=== PATIENT | female | born 2000 | race African-American/Black ===

== ENCOUNTER 2019-08-12 07:44 | Inpatient (IN) | payer BC, OTHER ==
[~2019-08-12] VITALS: Ht 170.2 cm; Wt 83.9 kg
--- NOTE | 2019-08-12 07:57 | NUR ---
ED Nurse Note: Pt walked in ED from home c/o cough x1 week, worsening last night and today with wheezing noted. Pt aox4, on room air patient is saturating 97%. Pt denies hx of asthma. Placed in hospital gown, cont. secured entrance monitor, and cont. pulse ox.
--- NOTE | 2019-08-12 07:57 | NUR ---
ED Nurse Note: ERMD at bedside
[2019-08-12] MEDS ORDERED: Azithromycin 250mg tab PO ONE (08:00)
[2019-08-12] MEDS ORDERED: cefTRIAXone 1 GM in NS 55 ML IVPB ONE (08:00)
[2019-08-12] MEDS ORDERED: Albuterol ud Inhalation HHN ONE ×2 (08:00→09:00)
--- NOTE | 2019-08-12 08:09 | Emergency Room Report ---
History of Present Illness General Chief Complaint: Dyspnea/Respdistress Source: Patient Present Illness HPI This patient states that about 4 days ago she developed "cold like symptoms." She states she initially did have a sore throat and over time has become more congested and has developed a cough and difficulty breathing. She states that she felt like she could not breathe especially when she was laying flat. This caused her not to be able to sleep. She states she has had thick sputum production. She denies fever or chills. She denies nausea or vomiting. She denies chest pain or abdominal pain. She states that she does smoke tobacco and marijuana both regularly. She states that the last time she vapes was 2 months ago. She does use alcohol socially. She denies other drug use. She denies any history of asthma or other history of needing to use an inhaler or any type of chronic lung conditions. She has no other complaints. Allergies: Coded Allergies: No Known Allergies (Unverified , 08/12/19) Patient History Past Medical History: none Social History: Reports: smoking, alcohol use, drug use - THC Now: No Reviewed Nursing Documentation: PMH: Agreed; PSxH: Agreed Nursing Documentation-PMH Past Medical History: No Stated History Review of Systems All Other Systems: negative except mentioned in HPI Physical Exam Vital Signs Date Time Temp Pulse Resp B/P (MAP) Pulse Ox O2 Delivery O2 Flow Rate FiO2 08/12/19 07:47 98.4 101 22 118/74 (89) 93 Room Air Sp02 EP Interpretation: reviewed, normal General Appearance: no apparent distress, alert, GCS 15, non-toxic Head: normocephalic, atraumatic Eyes: bilateral eye normal inspection, bilateral eye PERRL ENT: hearing grossly normal, normal pharynx, no angioedema, normal voice Neck: full range of motion, supple/symm/no masses Respiratory: chest non-tender, no respiratory distress, no retraction, no accessory muscle use, rhonchi - Rhonchi Bilateral Lung castro, speaking full sentences, wheezing - Slight wheeze both inspiration and expiration., expiration , inspiration Cardiovascular #1: regular rate, rhythm, no edema Gastrointestinal: normal bowel sounds, non tender, soft, non-distended, no guarding, no rebound Rectal: deferred Musculoskeletal: back normal, gait/station normal, normal range of motion, non- tender Neurologic: alert, oriented x3, responsive, motor strength/tone normal, sensory intact, speech normal Psychiatric: judgement/insight normal, memory normal, mood/affect normal, no suicidal/homicidal ideation Skin: no rash, normal color Medical Decision Making Diagnostic Impression: Primary Impression: Bronchospasm Additional Impression: Dyspnea Laboratory Tests Test 08/12/19 08:04 08/12/19 08:55 White Blood Count 12.7 K/UL (4.8-10.8) H Red Blood Count 5.21 M/UL (4.20-5.40) Hemoglobin 13.5 G/DL (12.0-16.0) Hematocrit 41.7 % (37.0-47.0) Mean Corpuscular Volume 80 FL (80-99) Mean Corpuscular Hemoglobin 26.0 PG (27.0-31.0) L Mean Corpuscular Hemoglobin Concent 32.4 G/DL (32.0-36.0) Red Cell Distribution Width 14.1 % (11.6-14.8) Platelet Count 260 K/UL (150-450) Mean Platelet Volume 8.6 FL (6.5-10.1) Neutrophils (%) (Auto) 67.2 % (45.0-75.0) Lymphocytes (%) (Auto) 18.2 % (20.0-45.0) L Monocytes (%) (Auto) 9.1 % (1.0-10.0) Eosinophils (%) (Auto) 4.2 % (0.0-3.0) H Basophils (%) (Auto) 1.2 % (0.0-2.0) Sodium Level 142 MMOL/L (136-145) Potassium Level 3.6 MMOL/L (3.5-5.1) Chloride Level 106 MMOL/L (98-107) Carbon Dioxide Level 26 MMOL/L (21-32) Anion Gap 10 mmol/L (5-15) Blood Urea Nitrogen 10 mg/dL (7-18) Creatinine 0.8 MG/DL (0.55-1.30) Estimate Glomerular Filtration Rate > 60 mL/min (>60) Glucose Level 101 MG/DL (74-106) Calcium Level 9.0 MG/DL (8.5-10.1) Total Bilirubin 0.3 MG/DL (0.2-1.0) Aspartate Amino Transferase (AST) 17 U/L (15-37) Alanine Aminotransferase (ALT) 21 U/L (12-78) Alkaline Phosphatase 93 U/L (46-116) Total Protein 7.7 G/DL (6.4-8.2) Albumin 3.9 G/DL (3.4-5.0) Globulin 3.8 g/dL Albumin/Globulin Ratio 1.0 (1.0-2.7) Urine Color Pale yellow Urine Appearance Clear Urine pH 7 (4.5-8.0) Urine Specific [place] 1.005 (1.005-1.035) Urine Protein Negative (NEGATIVE) Urine Glucose (UA) Negative (NEGATIVE) Urine Ketones Negative (NEGATIVE) Urine Blood 5+ (NEGATIVE) H Urine Nitrite Negative (NEGATIVE) Urine Bilirubin Negative (NEGATIVE) Urine Urobilinogen Normal MG/DL (0.0-1.0) Urine Leukocyte Esterase Negative (NEGATIVE) Urine RBC 40-60 /HPF (0 - 2) H Urine WBC 0 /HPF (0 - 2) Urine Squamous Epithelial Cells Occasional /LPF Urine Bacteria Occasional /HPF (NONE) Urine HCG, Qualitative Negative (NEGATIVE) Microbiology Date/Time Source Procedure Growth Status 08/12/19 08:50 Nasal Nares - Final Complete 08/12/19 08:50 Nasal Nares - Final Complete Chest X-Ray Diagnostic Results Chest X-Ray Diagnostic Results : Chest X-Ray Ordered: Yes # of Views/Limited/Complete: 1 View Indication: Shortness of Breath EP Interpretation: Yes Interpretation: no consolidation, no effusion, no pneumothorax, no acute cardiopulmonary disease Impression: No acute disease Electronically Signed by: Deepika Ny DO Last Vital Signs Date Time Temp Pulse Resp B/P (MAP) Pulse Ox O2 Delivery O2 Flow Rate FiO2 08/12/19 07:47 98.4 101 22 118/74 (89) 93 Room Air Scripts No Active Prescriptions or Reported Meds Deepika Ny DO Aug 12, 2019 08:09
--- NOTE | 2019-08-12 08:10 | NUR ---
ED Nurse Note: Blood collected and sent down to lab
--- NOTE | 2019-08-12 08:13 | NUR ---
ED Nurse Note: xray at bedside.
--- NOTE | 2019-08-12 08:21 | NUR ---
ED Nurse Note: RT at bedside for breathing treatment.
[2019-08-12 08:22] VITALS: BP 130/81
[2019-08-12 08:47] LABS: BASOPHILS % (AUTO) 1.2 % (0.0-2.0); EOSINOPHILS % (AUTO) 4.2 % (0.0-3.0); HEMATOCRIT 41.7 % (37.0-47.0); HEMOGLOBIN 13.5 G/DL (12.0-16.0); LYMPHOCYTES % (AUTO) 18.2 % (20.0-45.0); MEAN CORPUSCULAR VOLUME 80 FL (80-99); MONOCYTES % (AUTO) 9.1 % (1.0-10.0); NEUTROPHILS % (AUTO) 67.2 % (45.0-75.0); PLATELET COUNT 260 K/UL (150-450); RED BLOOD COUNT 5.21 M/UL (4.20-5.40); RED CELL DISTRIBUTION WIDTH 14.1 % (11.6-14.8); WHITE BLOOD COUNT 12.7 K/UL (4.8-10.8)
--- NOTE | 2019-08-12 08:50 | NUR ---
ED Nurse Note: Influenza swab taken and sent down to lab.
[2019-08-12 08:52] LABS: ANION GAP 10 mmol/L (5-15); BLOOD UREA NITROGEN 10 mg/dL (7-18); CARBON DIOXIDE 26 MMOL/L (21-32); CHLORIDE 106 MMOL/L (98-107); CREATININE 0.8 MG/DL (0.55-1.30); POTASSIUM 3.6 MMOL/L (3.5-5.1); SODIUM 142 MMOL/L (136-145)
--- NOTE | 2019-08-12 08:56 | NUR ---
ED Nurse Note: RT at bedside for second dose of breathing treatment per ERMD order.
[2019-08-12 08:58] LABS: ALANINE AMINOTRANSFERASE 21 U/L (12-78); ALBUMIN 3.9 G/DL (3.4-5.0); ALKALINE PHOSPHATASE 93 U/L (46-116); ASPARTATE AMINO TRANSFERASE 17 U/L (15-37); BILIRUBIN,TOTAL 0.3 MG/DL (0.2-1.0)
--- NOTE | 2019-08-12 09:00 | NUR ---
ED Nurse Note: urine sample provided by patient; sent to lab.
[2019-08-12 09:12] LABS: APPEARANCE,URINE CLEAR; BILIRUBIN, URINE NEGATIVE (NEGATIVE); COLOR,URINE PALE YELLOW; GLUCOSE, URINE (UA) NEGATIVE (NEGATIVE); KETONES,URINE NEGATIVE (NEGATIVE); LEUKOCYTE ESTERASE ,URINE NEGATIVE (NEGATIVE); NITRITE,URINE NEGATIVE (NEGATIVE); PH,URINE 7 (4.5-8.0); PROTEIN,URINE NEGATIVE (NEGATIVE); UROBILINOGEN,URINE NORMAL MG/DL (0.0-1.0)
--- NOTE | 2019-08-12 09:18 | NUR ---
ED Nurse Note: Patient's mother present at bedside.
[2019-08-12 09:21] VITALS: BP 124/68
--- NOTE | 2019-08-12 09:26 | Diagnostic Imaging Report ---
Indication: Dyspnea Comparison: None A single view chest radiograph was obtained. Findings: Cardiomediastinal appearance is within normal limits for age. The lungs are clear. Pulmonary vascularity is appropriate. The diaphragmatic contour is smooth and costophrenic angles are sharp. No pleural effusions are identified. The bones are unremarkable. Impression: No acute findings
--- NOTE | 2019-08-12 10:50 | History and Physical ---
History of Present Illness General Date patient seen: Aug 12, 2019 Reason for Hospitalization: Dyspnea/Respdistress Present Illness HPI This is a 19-year-old -British female who is accompanied by her mom presenting to the ED with few days of having developed cold-like symptoms. Patient has no past medical problems, she is a student in [employer] and works at [employer]. Per patient she has developed a cough, dry, mostly at night and early in the morning. Patient denies any history of asthma. She has recently started smoking marijuana oil via the vape. Denies smoking cigarettes. Patient denies having any sick contacts. Tonight before admission patient's cough got really bad, mom made her hot tea and gave her some allergy medication and she fell asleep. Patient says she woke up multiple times with shortness of breath during her sleep. When she woke up in the morning she felt extremely weak and had difficulty breathing, hence the mom brought her into the ED. Recently her cough became productive of thick sputum. She denies having fevers or chills. She denies any chest pain, nausea, vomiting, abdominal pain, lower extremity edema. Of note her mom gave her some albuterol inhaler and that helped a little. Patient denies any other complaints. In the ER she received steroids and breathing treatments without improvement and was admitted for further treatment. In the ER her vitals: 124/68, pulse 103, temperature 98.4 F, O2 sat 100% on 2 L via nasal cannula Labs remarkable for WBC 12.7 without a left shift, however Eosinophils of 4.2%, potassium 3.6, chloride 106, CO2 26, BUN 10, creatinine 0.8, glucose 101, calcium 9, LFTs unremarkable, chest x-ray no acute findings, influenza a and B both negative Past medical history: As above Past surgical history: None Family history: Mom with asthma Social history: Student at [employer], works at [employer], denies smoking cigarettes, vapes marijuana, denies alcohol or other illicit drug use Allergies: Coded Allergies: No Known Allergies (Unverified , 08/12/19) Medication History No Active Prescriptions or Reported Meds Patient History Healthcare decision maker Resuscitation status Advanced Directive on File Review of Systems Constitutional: Reports: no symptoms, see HPI, chills, sweats, fever, malaise, other Eye: Denies: no symptoms, see HPI, eye pain, blurred vision, tearing, double vision, nose pain, nose congestion, acuity changes, discharge, other ENT: Denies: no symptoms, see HPI, ear pain, ear discharge, nose pain, nose congestion, throat pain, throat swelling, mouth pain, hearing loss, nasal discharge, other Respiratory: Reports: no symptoms, see HPI, orthopnea, shortness of breath, stridor, GIBSON, other Cardiovascular: Denies: no symptoms, see HPI, chest pain, edema, palpitations, syncope, PND, other Gastrointestinal: Denies: no symptoms, see HPI, abdominal pain, constipation, diarrhea, nausea, vomiting, melena, hematemesis, other Genitourinary: Denies: no symptoms, see HPI, discharge, dysuria, frequency, hematuria, pain, retention, incontinence, urgency, vag bleed/dc, other Musculoskeletal: Denies: no symptoms, see HPI, back pain, gout, joint pain, joint swelling, muscle pain, muscle stiffness, other Skin: Denies: no symptoms, see HPI, rash, change in color, change in hair/nails , dryness, lesions, other Psychiatric: Denies: no symptoms, see HPI, prior hx, anxiety, depressed feelings, emotional problems, SI, HI, hallucinations, other Neurological: Denies: no symptoms, see HPI, headache, numbness, paresthesia, seizure, tingling, tremors, focal weakness, syncope, dizziness, other Endocrine: Denies: no symptoms, see HPI, excessive sweating, flushing, intolerance to temperature, increased thirst, increased urine, unexplained weight loss, other Hematologic/Lymphatic: Denies: no symptoms, see HPI, anemia, blood clots, easy bleeding, easy bruising, swollen glands, diathesis, other Physical Exam Physical Exam Narrative General Appearance: no apparent distress, alert, non-toxic, no respiratory distress Head: normocephalic, atraumatic Eyes: bilateral eye normal inspection, bilateral eye PERRL ENT: hearing grossly normal, normal pharynx, no angioedema, normal voice Neck: full range of motion, supple/symm/no masses Respiratory: Lungs with rhonchi throughout, inspiratory and expiratory wheezing , speaks full sentences Cardiovascular: S1S2, tachycardia, no m/r/g, no edema Gastrointestinal: normal bowel sounds, non tender, soft, non-distended, no guarding, no rebound Musculoskeletal: gait/station normal, normal range of motion, non-tender Neurologic: alert, oriented x3, responsive, motor strength/tone normal, sensory intact, speech normal Psychiatric: judgement/insight normal, memory normal, mood/affect normal, no suicidal/homicidal ideation Skin: no rash, normal color Last 24 Hour Vital Signs Date Time Temp Pulse Resp B/P (MAP) Pulse Ox O2 Delivery O2 Flow Rate FiO2 08/12/19 09:59 103 18 100 Room Air 21 08/12/19 09:21 98.4 106 20 124/68 100 Room Air 08/12/19 08:59 100 18 98 Room Air 21 08/12/19 08:40 87 18 100 Room Air 08/12/19 08:22 78 22 Room Air 21 08/12/19 08:22 98.4 74 22 130/81 97 Room Air 08/12/19 08:21 78 18 97 Room Air 08/12/19 07:47 98.4 101 22 118/74 (89) 93 Room Air Laboratory Tests Test 08/12/19 08:04 08/12/19 08:55 White Blood Count 12.7 K/UL (4.8-10.8) H Red Blood Count 5.21 M/UL (4.20-5.40) Hemoglobin 13.5 G/DL (12.0-16.0) Hematocrit 41.7 % (37.0-47.0) Mean Corpuscular Volume 80 FL (80-99) Mean Corpuscular Hemoglobin 26.0 PG (27.0-31.0) L Mean Corpuscular Hemoglobin Concent 32.4 G/DL (32.0-36.0) Red Cell Distribution Width 14.1 % (11.6-14.8) Platelet Count 260 K/UL (150-450) Mean Platelet Volume 8.6 FL (6.5-10.1) Neutrophils (%) (Auto) 67.2 % (45.0-75.0) Lymphocytes (%) (Auto) 18.2 % (20.0-45.0) L Monocytes (%) (Auto) 9.1 % (1.0-10.0) Eosinophils (%) (Auto) 4.2 % (0.0-3.0) H Basophils (%) (Auto) 1.2 % (0.0-2.0) Sodium Level 142 MMOL/L (136-145) Potassium Level 3.6 MMOL/L (3.5-5.1) Chloride Level 106 MMOL/L (98-107) Carbon Dioxide Level 26 MMOL/L (21-32) Anion Gap 10 mmol/L (5-15) Blood Urea Nitrogen 10 mg/dL (7-18) Creatinine 0.8 MG/DL (0.55-1.30) Estimat Glomerular Filtration Rate > 60 mL/min (>60) Glucose Level 101 MG/DL (74-106) Calcium Level 9.0 MG/DL (8.5-10.1) Total Bilirubin 0.3 MG/DL (0.2-1.0) Aspartate Amino Transf (AST/SGOT) 17 U/L (15-37) Alanine Aminotransferase (ALT/SGPT) 21 U/L (12-78) Alkaline Phosphatase 93 U/L (46-116) Total Protein 7.7 G/DL (6.4-8.2) Albumin 3.9 G/DL (3.4-5.0) Globulin 3.8 g/dL Albumin/Globulin Ratio 1.0 (1.0-2.7) Urine Color Pale yellow Urine Appearance Clear Urine pH 7 (4.5-8.0) Urine Specific [place] 1.005 (1.005-1.035) Urine Protein Negative (NEGATIVE) Urine Glucose (UA) Negative (NEGATIVE) Urine Ketones Negative (NEGATIVE) Urine Blood 5+ (NEGATIVE) H Urine Nitrite Negative (NEGATIVE) Urine Bilirubin Negative (NEGATIVE) Urine Urobilinogen Normal MG/DL (0.0-1.0) Urine Leukocyte Esterase Negative (NEGATIVE) Urine RBC 40-60 /HPF (0 - 2) H Urine WBC 0 /HPF (0 - 2) Urine Squamous Epithelial Cells Occasional /LPF Urine Bacteria Occasional /HPF (NONE) Urine HCG, Qualitative Negative (NEGATIVE) Microbiology Date/Time Source Procedure Growth Status 08/12/19 08:50 Nasal Nares - Final Complete 08/12/19 08:50 Nasal Nares - Final Complete Height (Feet): 5 Height (Inches): 7.00 Weight (Pounds): 185 Assessment/Plan Problem List: (1) CAP (community acquired pneumonia) ICD Codes: J18.9 - Pneumonia, unspecified organism SNOMED: 311973213 (2) Acute lung injury associated with vaping ICD Codes: T59.891A - Toxic effect of other specified gases, fumes and vapors, accidental (unintentional), initial encounter; J68.9 - Unspecified respiratory condition due to chemicals, gases, fumes and vapors SNOMED: 290941694, 670472493 (3) Dyspnea ICD Codes: R06.00 - Dyspnea, unspecified SNOMED: 210264961 (4) Bronchospasm ICD Codes: J98.01 - Acute bronchospasm SNOMED: 9635976 Status: stable Assessment/Plan: This is a 19 year old female who presents with dyspnea and cough, she has no history of reactive airway disease however uses vaping products including THC oil. Influenza A and B negative #Dyspnea/cough #?EVALI (E-cigarette, or vaping, product use associated lung injury) #?CAP #Asthma Urine antigen for legionella and streptococcus pneumoniae blood cultures sputum cultures Viral respiratory panel Empiric antibiotics with ceftriaxone and azithromycin IV methylprenisolone, taper per clinical response O2 as needed to keep sats > 95%, noninvasive ventilation if develops worsening respiratory distress Supportive care Chest CT If respiratory status worsens, low threshold for ICU Duone Pulmonary consult with Dr. Cochran Patient counselled on quitting vaping and smoking marijuana. She understands. Mom at bedside and appreciative vte ppx Heparin subq GI ppx: PPI Code status: full code I spent 70 minutes on this encounter. >50% spent on counseling and care coordination. Case discussed with ED physician, RN, patient and mom. Sergio Dumont M.D. Aug 12, 2019 10:50
--- NOTE | 2019-08-12 11:00 | NUR ---
ED Nurse Note: Report given to CRISTI Lemos via telephone.
--- NOTE | 2019-08-12 11:08 | NUR ---
TRANSFER TO FLOOR: Patient transferred to [facility] room 415-1 as ordered, per Dr Brown. Report given to CRISTI Lemos. Belongings list signed. Transferred via gurney in stable condition. Mother at bedside informed of transfer.
--- NOTE | 2019-08-12 11:15 | NUR ---
NURSE NOTES: Patient received to the floor, ambulatory, alert and orientedx4. Coughing. Belongings confirmed with the patient at bedside. Mother accompanied the patient during transfer.
[2019-08-12 12:28] VITALS: BP 129/78
[2019-08-12] MEDS: Solu-MEDROL 40mg Inj IVP SCH ×2 (14:21→21:30)
[2019-08-12 16:00] VITALS: BP 131/76
--- NOTE | 2019-08-12 19:28 | NUR ---
HAND-OFF: Report given to Kayce COLIN.
--- NOTE | 2019-08-12 19:41 | NUR ---
NURSE NOTES: Received report from Aminta COLIN. Patient A&Ox4. Pt awake, alert and OX4. Breathing on room air, no signs of acute distress noted. IV intact, patent and asymptomatic. Bed in lowest position with call light in reach. Will continue to monitor the pt.
[2019-08-12 20:00] VITALS: BP 127/74
[2019-08-12] MEDS: Albuterol/Ipratropium 3ml neb HHN PRN (20:40)
[2019-08-12] MEDS: Heparin 5000 units/ml inj SUBQ SCH (21:31)
[2019-08-13] VITALS: BP 128/73
--- NOTE | 2019-08-13 00:59 | NUR ---
NURSE NOTES: Urine and sputum specimen collected and taken to the lab as ordered on 08/12/19 @ 9912
[2019-08-13 04:00] VITALS: BP 125/71
[2019-08-13] MEDS: Solu-MEDROL 40mg Inj IVP SCH ×3 (05:04→21:17)
--- NOTE | 2019-08-13 07:15 | NUR ---
HAND-OFF: Report given to CRISTI Lemos.
[2019-08-13 07:23] LABS: ANION GAP 15 mmol/L (5-15); BASOPHILS % (AUTO) 0.4 % (0.0-2.0); BLOOD UREA NITROGEN 9 mg/dL (7-18); CALCIUM 9.5 MG/DL (8.5-10.1); CARBON DIOXIDE 20 MMOL/L (21-32); CHLORIDE 109 MMOL/L (98-107); CREATININE 0.7 MG/DL (0.55-1.30); EOSINOPHILS % (AUTO) 0.1 % (0.0-3.0); HEMATOCRIT 41.3 % (37.0-47.0); HEMOGLOBIN 13.8 G/DL (12.0-16.0); LYMPHOCYTES % (AUTO) 11.8 % (20.0-45.0); MEAN CORPUSCULAR VOLUME 78 FL (80-99); MONOCYTES % (AUTO) 3.5 % (1.0-10.0); NEUTROPHILS % (AUTO) 84.3 % (45.0-75.0); PLATELET COUNT 284 K/UL (150-450); POTASSIUM 4.1 MMOL/L (3.5-5.1); RED BLOOD COUNT 5.27 M/UL (4.20-5.40); SODIUM 144 MMOL/L (136-145); WHITE BLOOD COUNT 13.4 K/UL (4.8-10.8)
--- NOTE | 2019-08-13 07:35 | NUR ---
NURSE NOTES: Patient received sleeping in bed, arousable by name. Alert and oriented, denies SOB or pain. Breathing unlabored on room air. No coughing observed, Patient reports she is feeling better. Call light placed within reach. Will continue to monitor.
[2019-08-13 08:00] VITALS: BP 123/56
[2019-08-13] MEDS: cefTRIAXone 1 GM in D5W 55 ML IV SCH (08:59)
[2019-08-13] MEDS: Heparin 5000 units/ml inj SUBQ SCH ×2 (09:00→21:17)
[2019-08-13] MEDS: Albuterol/Ipratropium 3ml neb HHN PRN ×2 (09:38→19:41)
[2019-08-13] MEDS: Azithromycin 500 MG in D5W 275 ML IV SCH (09:48)
[2019-08-13 12:00] VITALS: BP 121/59
--- NOTE | 2019-08-13 15:23 | Cardiology Report ---
APPROVED REPORT EKG Measurement Heart [id number] Sinus rhythm with marked sinus arrhythmia Otherwise normal ECG
--- NOTE | 2019-08-13 15:44 | Diagnostic Imaging Report ---
EXAM: CT Chest Without Intravenous Contrast CLINICAL HISTORY: SOB TECHNIQUE: Axial computed tomography images of the chest without intravenous contrast. CTDI is 18.5 mGy and DLP is 805.1 mGy-cm. One or more of the following dose reduction techniques were used: automated exposure control, adjustment of the mA and or kV according to patient size, use of iterative reconstruction technique. COMPARISON: No relevant prior studies available. FINDINGS: Lungs: Unremarkable. No mass. No consolidation. Pleural space: Unremarkable. No pneumothorax. No significant effusion. Heart: Unremarkable. No cardiomegaly. No significant pericardial effusion. Bones joints: Unremarkable. No acute fracture. No dislocation. Soft tissues: Unremarkable. Vasculature: Unremarkable. No thoracic aortic aneurysm. Lymph nodes: Unremarkable. No enlarged lymph nodes. IMPRESSION: Normal chest CT.
[2019-08-13 16:00] VITALS: BP 151/90
--- NOTE | 2019-08-13 16:12 | General Progress Note ---
Assessment/Plan Status: stable Assessment/Plan: Assessment/Plan Problem List: (1) CAP (community acquired pneumonia) ICD Codes: J18.9 - Pneumonia, unspecified organism SNOMED: 941978142 (2) Acute lung injury associated with vaping ICD Codes: T59.891A - Toxic effect of other specified gases, fumes and vapors, accidental (unintentional), initial encounter; J68.9 - Unspecified respiratory condition due to chemicals, gases, fumes and vapors SNOMED: 961001003, 838039376 (3) Dyspnea ICD Codes: R06.00 - Dyspnea, unspecified SNOMED: 826515491 (4) Bronchospasm ICD Codes: J98.01 - Acute bronchospasm SNOMED: 3693753 Status: stable Assessment/Plan: This is a 19 year old female who presents with dyspnea and cough, she has no history of reactive airway disease however uses vaping products including THC oil. Influenza A and B negative #Dyspnea/cough #?EVALI (E-cigarette, or vaping, product use associated lung injury) #?CAP #Asthma Urine antigen for legionella and streptococcus pneumoniae blood cultures sputum cultures Viral respiratory panel Empiric antibiotics with ceftriaxone and azithromycin will be continued. IV methylprenisolone, taper per clinical response - continue IV for now. O2 as needed to keep sats > 95%, noninvasive ventilation if develops worsening respiratory distress Supportive care Chest CT PENDING report. It was done today. If respiratory status worsens, low threshold for ICU Duonebs PRN Pulmonary consult with Dr. Cochran Patient counselled on quitting vaping and smoking marijuana. She understands. Mom at bedside and appreciative vte ppx Heparin subq GI ppx: H2 leroy Code status: full code I spent 70 minutes on this encounter. >50% spent on counseling and care coordination. Case discussed with ED physician, RN, patient and mom. Subjective ROS Limited/Unobtainable: Yes Respiratory: Reports: cough Gastrointestinal/Abdominal: Reports: diarrhea Allergies: Coded Allergies: No Known Allergies (Unverified , 08/12/19) All Systems: reviewed and negative except above Subjective Diarrhea noted around 10:30 am. Poor PO intake with only small sips of water noted. Cough is still present with less sputum production. Objective Last 24 Hour Vital Signs Date Time Temp Pulse Resp B/P (MAP) Pulse Ox O2 Delivery O2 Flow Rate FiO2 08/13/19 12:00 98.3 86 18 121/59 (79) 95 08/13/19 09:40 87 18 93 Room Air 21 08/13/19 09:40 92 18 99 Room Air 21 87 18 93 08/13/19 09:00 Room Air 08/13/19 08:00 98.2 82 18 123/56 (78) 93 08/13/19 04:00 98.0 75 18 125/71 (89) 97 08/13/19 00:00 97.3 78 19 128/73 (91) 98 08/12/19 21:00 Room Air 08/12/19 20:40 101 20 95 Room Air 21 08/12/19 20:40 98 20 99 Room Air 21 101 20 95 08/12/19 20:00 97.2 84 18 127/74 (91) 97 Intake and Output 08/12/19 08/13/19 18:59 06:59 Intake Total 1305 ml 735 ml Balance 1305 ml 735 ml Intake Oral 1250 ml 360 ml IV Total 55 ml 375 ml # Voids 2 2 Laboratory Tests 08/12/19 21:10: Urine Legionella Antigen [Pending] 08/13/19 06:30: White Blood Count 13.4H, Red Blood Count 5.27, Hemoglobin 13.8, Hematocrit 41.3 , Mean Corpuscular Volume 78L, Mean Corpuscular Hemoglobin 26.2L, Mean Corpuscular Hemoglobin Concent 33.4, Red Cell Distribution Width 14.0, Platelet Count 284, Mean Platelet Volume 7.8, Neutrophils (%) (Auto) 84.3H, Lymphocytes ( %) (Auto) 11.8L, Monocytes (%) (Auto) 3.5, Eosinophils (%) (Auto) 0.1, Basophils (%) (Auto) 0.4, Sodium Level 144, Potassium Level 4.1, Chloride Level 109H, Carbon Dioxide Level 20L, Anion Gap 15, Blood Urea Nitrogen 9, Creatinine 0.7, Estimat Glomerular Filtration Rate > 60, Glucose Level 119H, Calcium Level 9.5 Height (Feet): 5 Height (Inches): 7.00 Weight (Pounds): 185 General Appearance: WD/WN EENT: PERRL/EOMI Neck: non-tender, normal alignment Cardiovascular: normal peripheral pulses, normal rate Respiratory/Chest: chest wall non-tender, lungs clear Abdomen: normal bowel sounds, non tender Neurologic: enterprise architect manager II-XII grossly normal Skin: normal pigmentation Karen Camargo MD Aug 13, 2019 16:12
--- NOTE | 2019-08-13 19:00 | NUR ---
CASE MANAGEMENT: INITIAL REVIEW 19 YO F PRESENTED TO OUR ED FROM HOME CC: DYSPNEA PMHx: DRUG USE (THC) SI:BRONCHOSPASM. RESP DISTRESS. T 98.4 HR 101 RR 22 B/P 118/74 SATS 93% ON RA LABS: WBC 12.7 IS: AZITHROMYCIN PO X1 CEFTRIAXONE IV X1 ALBUTEROL HHN X2 PREDNISONE PO X1 PATIENT ADMITTED TO MED/SURG 08/12/2019 @ 1028 DCP: PATIENT TO BE DISCHARGED TO HOME ONCE MEDICALLY CLEARED. PLAN OF CARE: SPUTUM CX BLOOD CX Addendum: 08/13/19 at 1947 by Shellie Morocho CM INTERQUAL MET
--- NOTE | 2019-08-13 19:20 | NUR ---
HAND-OFF: Report given to Barry COLIN.
--- NOTE | 2019-08-13 19:30 | NUR ---
NURSE NOTES: received patient on bed, awake and verbally responsive. respirations even and unlabored. alert and oriented x 4. no c/o pain or discomfort. with peripheral line on the right hand. needs attended and met. call light and light button within easy reach. will continue plan of care.
[2019-08-13 20:00] VITALS: BP 123/68
[2019-08-14] VITALS (7 sets, daily range): BP systolic 128–144; BP diastolic 67–93
[2019-08-14] MEDS: Albuterol/Ipratropium 3ml neb HHN PRN ×2 (00:21→17:28)
[2019-08-14] MEDS: Solu-MEDROL 40mg Inj IVP SCH (05:43)
--- NOTE | 2019-08-14 07:13 | NUR ---
HAND-OFF: Report given to Rakel Loja.
--- NOTE | 2019-08-14 08:04 | NUR ---
NURSE NOTES: received patient in bed, no complaint of pain, but reported nausea, nurse reassured patient she'll be medicated shortly. Left hand IV access, receives NS @ 75cc/hr. Bed locked at the lowest position possible, call light within easy reach, siderails up x2. Will continue to monitor patient and follow up with the plan of care.
[2019-08-14] MEDS: cefTRIAXone 1 GM in D5W 55 ML IV SCH (08:31)
[2019-08-14] MEDS: Heparin 5000 units/ml inj SUBQ SCH ×2 (08:33→20:30)
[2019-08-14] MEDS: Azithromycin 500 MG in D5W 275 ML IV SCH (09:27)
[2019-08-14] MEDS: Hydromorphone 0.5mg/0.5ml inj IVP PRN ×2 (09:33→20:51)
--- NOTE | 2019-08-14 11:13 | General Progress Note ---
Assessment/Plan Status: stable Assessment/Plan: Assessment/Plan Problem List: (1) CAP (community acquired pneumonia) ICD Codes: J18.9 - Pneumonia, unspecified organism SNOMED: 547718190 (2) Acute lung injury associated with vaping ICD Codes: T59.891A - Toxic effect of other specified gases, fumes and vapors, accidental (unintentional), initial encounter; J68.9 - Unspecified respiratory condition due to chemicals, gases, fumes and vapors SNOMED: 133137624, 577178192 (3) Dyspnea ICD Codes: R06.00 - Dyspnea, unspecified SNOMED: 177248853 (4) Bronchospasm ICD Codes: J98.01 - Acute bronchospasm SNOMED: 5464857 Status: stable Assessment/Plan: This is a 19 year old female who presents with dyspnea and cough, she has no history of reactive airway disease however uses vaping products including THC oil. Influenza A and B negative #Dyspnea/cough #?EVALI (E-cigarette, or vaping, product use associated lung injury) #?CAP doubt as normal CT chest and CXR. No new fever and mild leukocytosis most likely due to steroids. #Asthma Urine antigen for legionella and streptococcus pneumoniae PENDING blood cultures negative sputum cultures negative Viral respiratory panel PENDING Empiric antibiotics with ceftriaxone and azithromycin will be stopped as she is having diarrhea and suspect is antibiotic induced. IV methylprenisolone will be stopped now. Patient is very anxious now and suspect side effect from steroids. No acute wheezing. Will monitor and determine further need for steroid which should be at a lower dose. O2 as needed to keep sats > 95%, noninvasive ventilation if develops worsening respiratory distress Supportive care Chest CT NORMAL. If respiratory status worsens, low threshold for ICU Duonebs PRN Pulmonary consult with Dr. Cochran PENDING. Patient counselled on quitting vaping and smoking marijuana. She understands. Mom at bedside and appreciative # Acute anxiety attack - Suspect steroid induced. - Ativan PRN - Paper bag to support breathing can help and discussed with RN and patient. vte ppx Heparin subq GI ppx: H2 leroy Code status: full code I spent 50 minutes on this encounter. >50% spent on counseling and care coordination. Case discussed with ED physician, RN, patient and mom. Subjective Date patient seen: Aug 14, 2019 Time patient seen: 09:30 ROS Limited/Unobtainable: No Constitutional: Reports: malaise, weakness HEENT: Reports: no symptoms Cardiovascular: Reports: no symptoms Respiratory: Reports: no symptoms Gastrointestinal/Abdominal: Reports: abdominal pain, diarrhea Genitourinary: Reports: no symptoms Neurologic/Psychiatric: Reports: no symptoms Endocrine: Reports: no symptoms Hematologic/Lymphatic: Reports: no symptoms Allergies: Coded Allergies: No Known Allergies (Unverified , 08/12/19) Subjective Diarrhea noted around 10:30 am. Poor PO intake with only small sips of water noted. Cough is still present with less sputum production. Objective Last 24 Hour Vital Signs Date Time Temp Pulse Resp B/P (MAP) Pulse Ox O2 Delivery O2 Flow Rate FiO2 08/14/19 10:03 97.0 08/14/19 09:00 Room Air 08/14/19 08:00 97.2 73 18 134/80 (98) 96 08/14/19 04:00 97.0 90 18 128/67 (87) 97 08/14/19 00:21 88 18 98 Room Air 21 82 18 96 08/14/19 00:00 97.5 62 18 130/68 (88) 98 08/13/19 21:00 Room Air 08/13/19 20:00 97.0 93 18 123/68 (86) 96 08/13/19 19:41 91 18 99 Room Air 21 89 18 95 08/13/19 16:00 97.7 93 18 151/90 (110) 94 08/13/19 12:00 98.3 86 18 121/59 (79) 95 Intake and Output 08/13/19 08/14/19 19:00 07:00 Intake Total 1110 ml Balance 1110 ml Intake Oral 360 ml IV Total 750 ml # Voids 3 Height (Feet): 5 Height (Inches): 7.00 Weight (Pounds): 185 General Appearance: WD/WN EENT: PERRL/EOMI Neck: non-tender Cardiovascular: normal peripheral pulses, normal rate Respiratory/Chest: chest wall non-tender, lungs clear Abdomen: normal bowel sounds, non tender, no organomegaly, no mass Neurologic: supervisor rod placing II-XII grossly normal Karen Camargo MD Aug 14, 2019 11:13
[2019-08-14] MEDS ORDERED: LORazepam Inj 2mg/ml 1ml IV PRN (11:15)
--- NOTE | 2019-08-14 11:15 | NUR ---
NURSE NOTES: patient told nurse she's having diarrhea in am and thinks it's due to antibiotic IV. Communicated dr. Lashaun Camargo, Dr said it's ok not to collect stool C-diff as diarrhea seem to be antibiotic related.
--- NOTE | 2019-08-14 19:30 | NUR ---
HAND-OFF: Report given to CRISTI Swan.
[2019-08-15] VITALS: BP 129/74
[2019-08-15] MEDS: Albuterol/Ipratropium 3ml neb HHN PRN ×2 (00:34→11:07)
[2019-08-15 04:00] VITALS: BP 134/70
--- NOTE | 2019-08-15 07:22 | NUR ---
HAND-OFF: Report given to CRISTI Hartley.
--- NOTE | 2019-08-15 07:45 | NUR ---
NURSE NOTES: Received patient on bed, awake with family at bedside. IV site is not intact will attempt to start new one later. Bed in low and locked position, call light in reach. No signs of respiratory distress patient denies pain. Room board updated, will continue to monitor.
[2019-08-15 07:46] LABS: BASOPHILS % (AUTO) 0.8 % (0.0-2.0); EOSINOPHILS % (AUTO) 0.2 % (0.0-3.0); HEMOGLOBIN 13.1 G/DL (12.0-16.0); LYMPHOCYTES % (AUTO) 37.5 % (20.0-45.0); MEAN CORPUSCULAR VOLUME 80 FL (80-99); MONOCYTES % (AUTO) 7.6 % (1.0-10.0); PLATELET COUNT 273 K/UL (150-450); RED BLOOD COUNT 5.09 M/UL (4.20-5.40); RED CELL DISTRIBUTION WIDTH 14.3 % (11.6-14.8); WHITE BLOOD COUNT 15.7 K/UL (4.8-10.8)
[2019-08-15 08:00] VITALS: BP 114/77
[2019-08-15 08:11] LABS: ANION GAP 12 mmol/L (5-15); BLOOD UREA NITROGEN 13 mg/dL (7-18); CALCIUM 8.5 MG/DL (8.5-10.1); CARBON DIOXIDE 24 MMOL/L (21-32); CHLORIDE 109 MMOL/L (98-107); CREATININE 0.9 MG/DL (0.55-1.30); POTASSIUM 3.2 MMOL/L (3.5-5.1); SODIUM 145 MMOL/L (136-145)
[2019-08-15] MEDS: Heparin 5000 units/ml inj SUBQ SCH ×2 (09:17→20:45)
[2019-08-15] MEDS: Hydromorphone 0.5mg/0.5ml inj IVP PRN (10:00)
--- NOTE | 2019-08-15 11:18 | NUR ---
NURSE NOTES: Started new IV on left forearm 22 gauge. IV intact, patent and asymptomatic.
--- NOTE | 2019-08-15 11:20 | General Progress Note ---
Assessment/Plan Problem List: (1) CAP (community acquired pneumonia) ICD Codes: J18.9 - Pneumonia, unspecified organism SNOMED: 973732309 (2) Acute lung injury associated with vaping ICD Codes: T59.891A - Toxic effect of other specified gases, fumes and vapors, accidental (unintentional), initial encounter; J68.9 - Unspecified respiratory condition due to chemicals, gases, fumes and vapors SNOMED: 610760250, 230800215 (3) Dyspnea ICD Codes: R06.00 - Dyspnea, unspecified SNOMED: 747246932 (4) Bronchospasm ICD Codes: J98.01 - Acute bronchospasm SNOMED: 2043816 Status: stable Assessment/Plan: 19 year old female who presents with dyspnea and cough, she has no history of reactive airway disease however uses vaping products including THC oil. Influenza A and B negative #Dyspnea/cough #?EVALI (E-cigarette, or vaping, product use associated lung injury) #?CAP doubt as normal CT chest and CXR. No new fever and mild leukocytosis most likely due to steroids. #?Asthma Urine antigen for legionella and streptococcus pneumoniae PENDING blood cultures negative sputum cultures negative Viral respiratory panel PENDING Empiric antibiotics with ceftriaxone and azithromycin stopped IV methylprenisolone stopped. Patient was very anxious now and suspect side effect from steroids. No acute wheezing. Will monitor and determine further need for steroid which should be at a lower dose. O2 as needed to keep sats > 95%, noninvasive ventilation if develops worsening respiratory distress Supportive care Chest CT NORMAL. Duonebs PRN Pulmonary consult with Dr. Cochran PENDING. Requested on Sunday 08/12. Family asking to see a financial analyst Patient counselled on quitting vaping and smoking marijuana. She understands. Mom at bedside and appreciative # Acute anxiety attack - Suspect steroid induced. - Ativan PRN - Paper bag to support breathing can help and discussed with RN and patient. vte ppx Heparin subq GI ppx: H2 leroy Code status: full code I spent 40 minutes on this encounter. >50% spent on counseling and care coordination. Case discussed with ED physician, RN, patient and mom. Subjective Date patient seen: Aug 15, 2019 ROS Limited/Unobtainable: No Constitutional: Denies: no symptoms, chills, diaphoresis, fever, malaise, weakness, other HEENT: Denies: no symptoms, eye pain, blurred vision, tearing, double vision, ear pain, ear discharge, nose pain, nose congestion, throat pain, throat swelling, mouth pain, mouth swelling, other Cardiovascular: Denies: no symptoms, chest pain, edema, irregular heart rate, lightheadedness, palpitations, syncope, other Respiratory: Denies: no symptoms, cough, orthopnea, shortness of breath, SOB with excertion, SOB at rest, sputum, stridor, wheezing, other Gastrointestinal/Abdominal: Reports: no symptoms, abdomen distended, abdominal pain, black stools, tarry stools, blood in stool, constipated, difficulty swallowing, nausea, poor appetite, poor fluid intake, rectal bleeding, vomiting , other Genitourinary: Denies: no symptoms, burning, discharge, frequency, flank pain, hematuria, incontinence, pain, urgency, other Neurologic/Psychiatric: Denies: no symptoms, anxiety, depressed, emotional problems, headache, numbness, paresthesia, pre-existing deficit, seizure, tingling, tremors, weakness, other Endocrine: Denies: no symptoms, excessive sweating, flushing, intolerance to cold, intolerance to heat, increased hunger, increased thirst, increased urine, unexplained weight gain, unexplained weight loss, other Hematologic/Lymphatic: Denies: no symptoms, anemia, easy bleeding, easy bruising, other Allergies: Coded Allergies: No Known Allergies (Unverified , 08/12/19) Subjective Breathing much better CT chest negative ABX and steroids stopped Had had diarrhea over the weekend, which is improving Still getting IV fluids Objective Last 24 Hour Vital Signs Date Time Temp Pulse Resp B/P (MAP) Pulse Ox O2 Delivery O2 Flow Rate FiO2 08/15/19 11:08 77 20 99 Room Air 21 78 20 97 08/15/19 04:00 97.9 88 18 134/70 (91) 96 08/15/19 00:34 81 18 100 Room Air 21 77 18 98 08/15/19 00:00 98.1 63 18 129/74 (92) 95 08/14/19 21:00 98.1 61 18 137/74 (95) 97 08/14/19 21:00 Room Air 08/14/19 17:28 82 18 99 Room Air 21 79 18 95 08/14/19 15:51 98.1 81 19 141/81 (101) 97 08/14/19 12:00 98.1 61 17 144/93 (110) 97 Intake and Output 08/14/19 08/15/19 19:00 07:00 Intake Total 1755 ml 1325 ml Balance 1755 ml 1325 ml Intake Oral 500 ml IV Total 855 ml 825 ml Other 900 ml # Voids 3 # Bowel Movements 3 Laboratory Tests 08/15/19 06:33: White Blood Count 15.7H, Red Blood Count 5.09, Hemoglobin 13.1, Hematocrit 41.0 , Mean Corpuscular Volume 80, Mean Corpuscular Hemoglobin 25.7L, Mean Corpuscular Hemoglobin Concent 31.9L, Red Cell Distribution Width 14.3, Platelet Count 273, Mean Platelet Volume 8.7, Neutrophils (%) (Auto) 54.0, Lymphocytes (%) (Auto) 37.5, Monocytes (%) (Auto) 7.6, Eosinophils (%) (Auto) 0.2, Basophils (%) (Auto) 0.8, Sodium Level 145, Potassium Level 3.2L, Chloride Level 109H, Carbon Dioxide Level 24, Anion Gap 12, Blood Urea Nitrogen 13, Creatinine 0.9, Estimat Glomerular Filtration Rate > 60, Glucose Level 87, Calcium Level 8.5 Height (Feet): 5 Height (Inches): 7.00 Weight (Pounds): 185 Sergio Dumont M.D. Aug 15, 2019 11:20
[2019-08-15 12:00] VITALS: BP 132/76
[2019-08-15 16:00] VITALS: BP 134/96
--- NOTE | 2019-08-15 19:31 | NUR ---
HAND-OFF: Report given to CRISTI George.
[2019-08-15 20:00] VITALS: BP 111/72
--- NOTE | 2019-08-15 20:00 | NUR ---
NURSE NOTES: Received patient awake, ambulating in room, AOx4. No c/o pain at this time. Family at bedside. IV access patent and intact. No s/s of acute distress.
--- NOTE | 2019-08-15 22:45 | Pulmonology Progress Note ---
Assessment/Plan Assessment/Plan Pulmonary Consultation HPI The patient is a 19 year old woman admitted with cough and difficulty breathing which occurred after she developed "cold like symptoms." her cough was associated with thick sputum production. She denies fever or chills, nausea or vomiting. Has no chest pain or abdominal pain. Her shortness of breath has improved on steroid and nebulizer therapy She has a history of both regular tobacco and marijuana use, vaping both as well as smoking marijuana. She states that the last time she vaped was 2 months ago. She does use alcohol socially. She denies any history of asthma or other history of needing to use an inhaler or any type of chronic lung conditions. She has no other complaints. Allergies: No Known Allergies Past Medical History: none Social History: Reports: smoking, alcohol use, drug use - THC All Other Systems: negative except mentioned in HPI Physical Exam Vital Signs Noted General Appearance: no apparent distress, alert, GCS 15, non-toxic Head: normocephalic, atraumatic Eyes: bilateral eye normal inspection, bilateral eye PERRL ENT: hearing grossly normal, normal pharynx, no angioedema, normal voice Neck: full range of motion, supple/symm/no masses Respiratory: chest non-tender, no respiratory distress, no retraction, no accessory muscle use, occasional wheeze Cardiovascular: regular rate, rhythm, HS1, HS2, no edema Gastrointestinal: normal bowel sounds, non tender, soft, non-distended, no guarding, no rebound Musculoskeletal: back normal, gait/station normal, normal range of motion, non- tender Neurologic: alert, oriented x3, responsive, motor strength/tone normal, sensory intact, speech normal Impression: Bronchospasm aassociated with viral illness Previous Nicotine and Marijuana vaping exposure No infiltrates on Pulmonary imaging Plan: Continue current HHN O2 PRN Solumedrol DC as patient was intolerant Inhaled Budesonide Inhaler technique PEFR monitoring Will need Inhaled Corticosteroid and bronchodilators on DC Advised to stop vaping and smoking Will need PFT as outpatient Laboratory Tests Test 08/12/19 08:04 08/12/19 08:55 White Blood Count 12.7 K/UL (4.8-10.8) H Red Blood Count 5.21 M/UL (4.20-5.40) Hemoglobin 13.5 G/DL (12.0-16.0) Hematocrit 41.7 % (37.0-47.0) Mean Corpuscular Volume 80 FL (80-99) Mean Corpuscular Hemoglobin 26.0 PG (27.0-31.0) L Mean Corpuscular Hemoglobin Concent 32.4 G/DL (32.0-36.0) Red Cell Distribution Width 14.1 % (11.6-14.8) Platelet Count 260 K/UL (150-450) Mean Platelet Volume 8.6 FL (6.5-10.1) Neutrophils (%) (Auto) 67.2 % (45.0-75.0) Lymphocytes (%) (Auto) 18.2 % (20.0-45.0) L Monocytes (%) (Auto) 9.1 % (1.0-10.0) Eosinophils (%) (Auto) 4.2 % (0.0-3.0) H Basophils (%) (Auto) 1.2 % (0.0-2.0) Sodium Level 142 MMOL/L (136-145) Potassium Level 3.6 MMOL/L (3.5-5.1) Chloride Level 106 MMOL/L (98-107) Carbon Dioxide Level 26 MMOL/L (21-32) Anion Gap 10 mmol/L (5-15) Blood Urea Nitrogen 10 mg/dL (7-18) Creatinine 0.8 MG/DL (0.55-1.30) Estimate Glomerular Filtration Rate > 60 mL/min (>60) Glucose Level 101 MG/DL (74-106) Calcium Level 9.0 MG/DL (8.5-10.1) Total Bilirubin 0.3 MG/DL (0.2-1.0) Aspartate Amino Transferase (AST) 17 U/L (15-37) Alanine Aminotransferase (ALT) 21 U/L (12-78) Alkaline Phosphatase 93 U/L (46-116) Total Protein 7.7 G/DL (6.4-8.2) Albumin 3.9 G/DL (3.4-5.0) Globulin 3.8 g/dL Albumin/Globulin Ratio 1.0 (1.0-2.7) Urine Color Pale yellow Urine Appearance Clear Urine pH 7 (4.5-8.0) Urine Specific [place] 1.005 (1.005-1.035) Urine Protein Negative (NEGATIVE) Urine Glucose (UA) Negative (NEGATIVE) Urine Ketones Negative (NEGATIVE) Urine Blood 5+ (NEGATIVE) H Urine Nitrite Negative (NEGATIVE) Urine Bilirubin Negative (NEGATIVE) Urine Urobilinogen Normal MG/DL (0.0-1.0) Urine Leukocyte Esterase Negative (NEGATIVE) Urine RBC 40-60 /HPF (0 - 2) H Urine WBC 0 /HPF (0 - 2) Urine Squamous Epithelial Cells Occasional /LPF Urine Bacteria Occasional /HPF (NONE) Urine HCG, Qualitative Negative (NEGATIVE) Microbiology Date/Time Source Procedure Growth Status 08/12/19 08:50 Nasal Nares - Final Complete 08/12/19 08:50 Nasal Nares - Final Complete Chest X-Ray: no consolidation, no effusion, no pneumothorax, no acute cardiopulmonary disease CT Chest: No infiltrates Subjective ROS Limited/Unobtainable: No Allergies: Coded Allergies: No Known Allergies (Unverified , 08/12/19) Objective Last 24 Hour Vital Signs Date Time Temp Pulse Resp B/P (MAP) Pulse Ox O2 Delivery O2 Flow Rate FiO2 08/15/19 16:00 98.1 64 18 134/96 (109) 96 08/15/19 12:00 97.9 61 20 132/76 (94) 97 08/15/19 11:08 77 20 99 Room Air 21 78 20 97 08/15/19 09:00 Room Air 08/15/19 08:00 98.0 73 18 114/77 (89) 90 08/15/19 04:00 97.9 88 18 134/70 (91) 96 08/15/19 00:34 81 18 100 Room Air 21 77 18 98 08/15/19 00:00 98.1 63 18 129/74 (92) 95 Intake and Output 08/14/19 08/15/19 18:59 06:59 Intake Total 1755 ml 1400 ml Balance 1755 ml 1400 ml Intake Oral 500 ml IV Total 855 ml 900 ml Other 900 ml # Voids 3 # Bowel Movements 3 Laboratory Tests 08/15/19 06:33: White Blood Count 15.7H, Red Blood Count 5.09, Hemoglobin 13.1, Hematocrit 41.0 , Mean Corpuscular Volume 80, Mean Corpuscular Hemoglobin 25.7L, Mean Corpuscular Hemoglobin Concent 31.9L, Red Cell Distribution Width 14.3, Platelet Count 273, Mean Platelet Volume 8.7, Neutrophils (%) (Auto) 54.0, Lymphocytes (%) (Auto) 37.5, Monocytes (%) (Auto) 7.6, Eosinophils (%) (Auto) 0.2, Basophils (%) (Auto) 0.8, Sodium Level 145, Potassium Level 3.2L, Chloride Level 109H, Carbon Dioxide Level 24, Anion Gap 12, Blood Urea Nitrogen 13, Creatinine 0.9, Estimat Glomerular Filtration Rate > 60, Glucose Level 87, Calcium Level 8.5 Current Medications Medications (Trade) Dose Ordered Sig/Shannon Route PRN Reason Start Time Stop Time Status Last Admin Dose Admin Acetaminophen (Tylenol) 650 mg Q4H PRN ORAL Mild Pain (Pain Scale 1-3) 08/12/19 11:00 09/11/19 10:59 Acetaminophen (Tylenol) 650 mg Q4H PRN ORAL fever 08/12/19 11:00 09/11/19 10:59 Albuterol/ Ipratropium (Albuterol/ Ipratropium) 3 ml Q4H PRN HHN Shortness of Breath 08/12/19 11:00 08/17/19 10:59 08/15/19 11:07 Budesonide (Pulmicort) 0.25 mg Q12HRT HHN 08/15/19 22:00 09/14/19 21:59 Diphenhydramine HCl (Benadryl) 25 mg Q6H PRN ORAL Itching/Pruritis 08/12/19 11:00 09/11/19 10:59 Famotidine (Pepcid I.v.) 20 mg Q12HR IVP 08/14/19 11:15 09/13/19 11:14 08/15/19 20:44 Heparin Sodium (Porcine) (Heparin 5000 units/ml) 5,000 units EVERY 12 HOURS SUBQ 08/12/19 21:00 09/11/19 20:59 08/15/19 20:45 Hydromorphone HCl (Dilaudid) 0.5 mg Q4H PRN IVP For Pain 08/12/19 11:00 08/19/19 10:59 08/15/19 10:00 Lorazepam (Ativan 2mg/ml 1ml) 1 mg Q4H PRN IV For Anxiety 08/14/19 11:15 08/21/19 11:14 08/14/19 11:48 Ondansetron HCl (Zofran) 4 mg Q6H PRN IVP Nausea & Vomiting 08/13/19 10:15 09/12/19 10:14 08/15/19 17:07 Temazepam (Restoril) 15 mg HSPRN PRN ORAL Insomnia 08/12/19 11:00 08/19/19 10:59 Naeem Tirado MD Aug 15, 2019 22:45
[2019-08-16] VITALS: BP 115/47
[2019-08-16] MEDS: Budesonide HHN 0.25mg/2ml ud HHN SCH ×2 (01:51→10:10)
[2019-08-16 04:00] VITALS: BP 115/42
--- NOTE | 2019-08-16 07:05 | NUR ---
NURSE NOTES: Received patient on bed awake. No SOB or cardiac distress. IV line intact and patent, no s/s of infection. HOB elevated. Bed locked in lowest position. Will continue plan of care.
--- NOTE | 2019-08-16 07:05 | NUR ---
HAND-OFF: Report given to CRISTI Arreola. Called Dr Brown for flu vaccine order, awaiting call back from covering doctor.
[2019-08-16 08:00] VITALS: BP 137/77
[2019-08-16] MEDS: Heparin 5000 units/ml inj SUBQ SCH (09:11)
[2019-08-16] MEDS ORDERED: VENTOLIN HFA18 GM INH (11:34)
[2019-08-16] MEDS ORDERED: PULMICORT1 EA HHN (11:34)
--- NOTE | 2019-08-16 11:50 | Discharge Summary ---
Discharge Summary Hospital Course Date of Admission Aug 12, 2019 at 10:28 Date of Discharge 08/16/2019 Admitting Diagnosis BRONCHOSPASM, RESPIRATORY DISTRESS HPI Katie Lira is a 19 year old female who was admitted on Aug 12, 2019 at 10:28 for Bronchospasm, Respiratory Distress Consultations pulmonary: Dr. Cochran/ [facility] Course 19 year old female who presents with dyspnea and cough, she has no history of reactive airway disease however uses vaping products including THC oil. Influenza A and B negative #Bronchospasm associated with viral illness. Nicotine and Marijuana vaping exposure #?EVALI (E-cigarette, or vaping, product use associated lung injury) unlikely given CT chest normal #?CAP doubt as normal CT chest and CXR. No new fever and mild leukocytosis most likely due to steroids. #?Asthma- no history of such, needs outpatient PFTs blood cultures negative sputum cultures negative Empiric antibiotics with ceftriaxone and azithromycin stopped IV methylprednisolone stopped. Patient was very anxious now and suspect side effect from steroids. No acute wheezing. Will monitor and determine further need for steroid which should be at a lower dose. O2 as needed to keep sats > 95%, noninvasive ventilation if develops worsening respiratory distress Supportive care Chest CT NORMAL. Duonebs PRN Pulmonary consult appreciated: Inhaled Budesonide Inhaler technique PEFR monitoring Will discharge on Inhaled Corticosteroid and bronchodilators (Budesonide, Ventolin) Will need PFT as outpatient Patient counselled on quitting vaping and smoking marijuana. She understands. Mom at bedside and appreciative # Acute anxiety attack - Suspect steroid induced. - Ativan PRN - Paper bag to support breathing can help and discussed with RN and patient. vte ppx Heparin subq GI ppx: H2 leroy Code status: full code Exam on discharge: awake, alert and oriented x3, in no respiratory distress. lung: diffuse coarse breath sounds. cvs s1s2, no m/r/g, ext: no edema I spent 35 minutes on this encounter. >50% spent on counseling and care coordination. Case discussed with ED physician, RN, patient and mom. Discharge Medications New Medications: Albuterol Sulfate (Ventolin Hfa) 18 Gm Hfa.aer.ad 1 PUFF INH EVERY 6 HOURS PRN for 10 Days, #18 GM 0 Refills Budesonide (Pulmicort) 0.25 Mg/2 Ml Ampul.neb 0.25 MG HHN Q12HRT for 30 Days, #1 EA Discharge Condition Upon Discharge: stable Discharge Disposition Patient was discharged to home Discharge Diagnoses: (1) Bronchospasm (2) Dyspnea Sergio Dumont M.D. Aug 16, 2019 11:50
--- NOTE | 2019-08-16 12:28 | NUR ---
CASE MANAGEMENT: REVIEW 08/14/19 PMHx: DRUG USE (THC) SI:BRONCHOSPASM. RESP DISTRESS. 97.2 73 20 137/80 96% ON RA IS: AZITHROMYCIN PO X1 CEFTRIAXONE IV X1 ALBUTEROL HHN X2 PREDNISONE PO X1 : 4E MED SURG UNIT DCP: PATIENT TO BE DISCHARGED TO HOME ONCE MEDICALLY CLEARED. PLAN OF CARE: CASE MANAGEMENT: REVIEW 08/15/19 PMHx: DRUG USE (THC) SI:BRONCHOSPASM. RESP DISTRESS. 98.0 73 18 114/77 90% ON RA WBC 15.7 K+3.2 IS: AZITHROMYCIN PO X1 CEFTRIAXONE IV X1 ALBUTEROL HHN X2 PREDNISONE PO X1 : 4E MED SURG UNIT DCP: PATIENT TO BE DISCHARGED TO HOME ONCE MEDICALLY CLEARED.
--- NOTE | 2019-08-16 13:18 | NUR ---
NURSE NOTES: For discharge today, accompanied by mother and to be transported to home via private vehicle. Flu shot given on left deltoid, tolerated well. All belongings accounted for. Discharge instructions given. No skin issues noted. Awaiting home medication from pharmacy.
--- NOTE | 2019-08-16 13:18 | CDS Physician Query ---
Clarification is required for compliance, coding accuracy, and to reflect severity of illness for this patient Dear Sergio Sanchez M.D. Date: 08/16/2019 CDS: Balbir Fuentes This is a 19-year-old -[place] female who is accompanied by her mom presenting to the ED with few days of having developed cold-like symptoms. Patient has no past medical problems, she is a student in [employer] and works at [employer]. Per patient she has developed a cough, dry, mostly at night and early in the morning. Patient denies any history of asthma. She has recently started smoking marijuana oil via the vape. Denies smoking cigarettes. Patient denies having any sick contacts. Tonight before admission patient's cough got really bad, mom made her hot tea and gave her some allergy medication and she fell asleep. Assessment/Plan Problem List: (1) CAP (community acquired pneumonia) Labs: WBC: 12.7--->15.7 Vitals: HR: 101/min Tx: IV AZYTHROMYCIN; IV CEFTRIAXON According to the clinical indications above, please indicate below the condition PHYSICIAN RESPONSE: Sepsis SIRS SIRS with organ dysfunction Septic Shock Not applicable Other: --->leukocytosis secondary to steroids Present on Admission: Yes XNo Clinically Undetermined ___sergio spears 08/16/2019 Physician signature Date Please also document in your Progress Notes and/or Discharge Summary and indicate if the condition was present on admission. MTDD
--- NOTE | 2019-08-16 14:12 | NUR ---
*-* INSURANCE *-* ALL CLINICALS AND REVIEWS HAVE BEEN FAXED TO: ANNA HAMMER F: [phone]
--- NOTE | 2019-08-16 14:23 | Pulmonology Progress Note ---
Assessment/Plan Problems: (1) Reactive airway disease (2) Bronchospasm (3) Engages in non-nicotine containing substance vaping Assessment/Plan Optimize pulmonary hygiene/mobilize as tolerated PRN O2 Pulmicort PRN HHN's CT reviewed Risks of continued MJ use and vaping d/w patient F/U with me in 2-3 weeks, will need full PFT's once acute issues resolve Subjective Allergies: Coded Allergies: No Known Allergies (Unverified , 08/12/19) Subjective AFVSS on RA No cough no SOB no FC no CP Objective Last 24 Hour Vital Signs Date Time Temp Pulse Resp B/P (MAP) Pulse Ox O2 Delivery O2 Flow Rate FiO2 08/16/19 10:20 78 18 100 Room Air 21 62 16 99 08/16/19 08:55 Room Air 08/16/19 08:00 97.7 57 20 137/77 (97) 97 08/16/19 04:00 97.6 64 20 115/42 (66) 97 08/16/19 01:51 79 20 100 Room Air 21 78 20 99 08/16/19 00:00 97.9 59 20 115/47 (69) 97 08/15/19 22:54 Room Air 08/15/19 20:00 97.7 70 18 111/72 (85) 97 08/15/19 16:00 98.1 64 18 134/96 (109) 96 Intake and Output 08/15/19 08/16/19 19:00 07:00 Intake Total 840 ml Balance 840 ml Intake Oral 840 ml # Voids 3 3 General Appearance: WD/WN, no acute distress HEENT: normocephalic, atraumatic, anicteric, mucous membranes moist Respiratory/Chest: chest wall non-tender, lungs clear, normal breath sounds, no respiratory distress, no accessory muscle use Cardiovascular: normal peripheral pulses, normal rate, regular rhythm Abdomen: normal bowel sounds, soft, non tender, no organomegaly, non distended , no mass Extremities: no cyanosis, no clubbing, no edema Current Medications Medications (Trade) Dose Ordered Sig/Shannon Route PRN Reason Start Time Stop Time Status Last Admin Dose Admin Acetaminophen (Tylenol) 650 mg Q4H PRN ORAL Mild Pain (Pain Scale 1-3) 08/12/19 11:00 09/11/19 10:59 Acetaminophen (Tylenol) 650 mg Q4H PRN ORAL fever 08/12/19 11:00 09/11/19 10:59 Albuterol/ Ipratropium (Albuterol/ Ipratropium) 3 ml Q4H PRN HHN Shortness of Breath 08/12/19 11:00 08/17/19 10:59 08/15/19 11:07 Budesonide (Pulmicort) 0.25 mg Q12HRT HHN 08/15/19 22:00 09/14/19 21:59 08/16/19 10:10 Diphenhydramine HCl (Benadryl) 25 mg Q6H PRN ORAL Itching/Pruritis 08/12/19 11:00 09/11/19 10:59 Famotidine (Pepcid I.v.) 20 mg Q12HR IVP 08/14/19 11:15 09/13/19 11:14 08/16/19 09:09 Heparin Sodium (Porcine) (Heparin 5000 units/ml) 5,000 units EVERY 12 HOURS SUBQ 08/12/19 21:00 09/11/19 20:59 08/16/19 09:11 Hydromorphone HCl (Dilaudid) 0.5 mg Q4H PRN IVP For Pain 08/12/19 11:00 08/19/19 10:59 08/15/19 10:00 Lorazepam (Ativan 2mg/ml 1ml) 1 mg Q4H PRN IV For Anxiety 08/14/19 11:15 08/21/19 11:14 08/14/19 11:48 Ondansetron HCl (Zofran) 4 mg Q6H PRN IVP Nausea & Vomiting 08/13/19 10:15 09/12/19 10:14 08/15/19 17:07 Temazepam (Restoril) 15 mg HSPRN PRN ORAL Insomnia 08/12/19 11:00 08/19/19 10:59 Edgard Cochran MD Aug 16, 2019 14:23
[2019-08-16] MEDS ORDERED: PULMICORT FLEX90 MCG IH (14:41)
--- NOTE | 2019-08-16 15:30 | NUR ---
NURSE NOTES: Patient discharged in stable condition. ID band removed. IV line removed, no s/s of infection. Accompanied patient and mother to the lobby.
== END 2019-08-16 15:30 | disposition home or self-care (01) | DRG 195 ==
LOC: EMR 08:32 → 4E 10:28 → EDBEDREQ 10:48 → 4E 08-15 14:01
DX: J18.9 Pneumonia, unspecified organism (principal); J98.01 Acute bronchospasm; T59.891A Toxic effect of other specified gases, fumes and vapors, accidental (unintentional), initial encounter; J68.9 Unspecified respiratory condition due to chemicals, gases, fumes and vapors; R06.00 Dyspnea, unspecified; J45.909 Unspecified asthma, uncomplicated; F41.0 Panic disorder [episodic paroxysmal anxiety]; D72.829 Elevated white blood cell count, unspecified; T38.0X5A Adverse effect of glucocorticoids and synthetic analogues, initial encounter; R06.03 Acute respiratory distress
CPT/HCPCS: 36415; 71045; 71250; 80048; 80053; 81003; 81025; 82164; 85025; 86710; 87040; 87070; 87205; 90689; 93005; 94640; 94664; 96365; 99285; J2405; J7030; J7620